=== PATIENT | female | born 2000 | race Caucasian/White ===

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

== ENCOUNTER 2022-08-18 11:10 | Emergency (ER) | payer OTHER ==
[~2022-08-18] VITALS: Ht 165.1 cm; Wt 68.0 kg
[2022-08-18 11:16] VITALS: BP 121/84
--- NOTE | 2022-08-18 11:24 | NUR ---
PT SWABBED SPECIMEN SENT TO LAB
[2022-08-18] MEDS ORDERED: PROM118S5 PO (12:23)
[2022-08-18] MEDS ORDERED: ALBU0.0912 IH (12:23)
--- NOTE | 2022-08-18 12:30 | NUR ---
PT C.O COUGH CONGESTION X4 DAYS PMH: DENIES
--- NOTE | 2022-08-18 12:30 | NUR ---
Patient discharged with v/s stable. Written and verbal after care instructions ABOUT VIRAL ILLNESS given and explained. Patient alert, oriented and verbalized understanding of instructions. Ambulatory with steady gait. All questions addressed prior to discharge. ID band removed. Patient advised to follow up with PMD. Rx of ALBUTEROL AND PROMETHAZINE DM given. Patient educated on indication of medication including possible reaction and side effects. Opportunity to ask questions provided and answered.
== END 2022-08-18 12:30 | disposition home or self-care (01) ==
LOC: MED 11:10
DX: B34.9 Viral infection, unspecified (principal); Z20.822 Contact with and (suspected) exposure to COVID-19; J45.909 Unspecified asthma, uncomplicated; Z79.899 Other long term (current) drug therapy
CPT/HCPCS: 99283